=== PATIENT | female | born 1980 | race Caucasian/White ===

== ENCOUNTER 2022-09-14 19:37 | Inpatient (IN) ==
[2022-09-14] MEDS ORDERED: SODIUM CHLORIDE 0.9% 1000ML 500 ML IV ONE (20:10)
[2022-09-14] MEDS ORDERED: cefTRIAXone SODIUM 1,000 MG in DEXTROSE 5% AD-VAN 50 ML IV STA (20:10)
[2022-09-14 20:13] LABS: Hemoglobin 14.1 g/dl (12.0-16.0); Mean Corpuscular Hemoglobin 34.6 pg (25.0-34.0); Mean Corpuscular Hgb Conc 34.4 g/dL (32.0-36.0); Mean Corpuscular Volume 100.5 fL (80.0-100.0); Mean Platelet Volume 9.1 fL (9.4-12.4); Platelet Count 428 K/uL (130-400); RDW Coefficient of Variation 13.1 % (11.5-14.5); RDW Standard Deviation 48.3 fL (36.4-46.3); Red Blood Count 4.08 M/uL (4.20-5.40); White Blood Count 14.92 K/ul (4.8-10.8)
--- NOTE | 2022-09-14 20:17 | Emergency Department Note ---
Impression & Plan Cellulitis of face ED Provider Note Provider: Thien Batres MD DATE OF SERVICE: 09/14/2022 CHIEF COMPLAINT: Facial rash HISTORY OF PRESENT ILLNESS: Patient is a 42-year-old female history of h ypothyroidism and Down syndrome presenting here with parents today referred from [facility]. Patient evidently was doing fairly well yesterday and then awoke this morning with some redness face prickly to the right of the nostril. States yesterday she did evacuate some mucus from the right nose. Denies any trauma. States it was bit painful earlier. Denies fever but reports a bit of fatigue. States a bit of dizziness after having the IV placed but has been having good intake today and ate earlier. Has some allergy issues and takes Alexandrea but never had a facial rash like this before. No other rashes reported elsewhere on the body. Referred from urgent care for evaluation of possible facial cellulitis. Denies any difficulty swallowing or oral mucosal lesions. PAST MEDICAL HISTORY: As noted above MEDICATIONS: Reviewed home medications SOCIAL HISTORY: Lives with parents PHYSICAL EXAM: GENERAL: alert and oriented in no acute distress on stretcher Head: normocephalic and atraumatic with rash around the eyes and nasal bridge to the cheeks without bullae or blistering. No large open wounds noted. EYES: No injection, discharge or icterus. PERRL, EOMI. NECK: Trachea midline. Supple with some mild lymphadenopathy in the submandibular space but no tongue elevation. ENT: Mucous membranes pink and moist. No ulcerations noted. Pharynx without erythema or exudate. LUNGS: Airway patent. No retractions or tachypnea HEART: Regular rate and rhythm. No chest wall tenderness ABDOMEN: Soft and non-tender, without guarding or rebound. SKIN: Acyanotic, warm, dry, without rashes EXTREMITIES: Without swelling, tenderness or deformity NEUROLOGICAL: No focal deficits. No aphasia. No facial droop or slurred speech. . Ambulatory. Patient's laboratory studies reviewed. Differential includes Cellulitis, abscess, MRSA infection, DVT, necrotizing fasciitis, dermatitis, drug eruption, allergic reaction, as well as other pathologies. IMPRESSION/MEDICAL DECISION MAKING: Patient with red rash to the face developing over the course of the day. 98.7 Fahrenheit for me in the room and no use of antipyretics. Does have a leukocytosis on blood work here. Do not see a large open wound but does have some nasal secretions noted. Unsure if this may have provoked his skin inf ection here. Could be viral in nature as well and COVID flu RSV test sent. Denies other significant respiratory symptoms. No evidence of SJS or mucosal involvement. Declined significant pain now. Carefully give a dose of ceftriaxone for antibiotic coverage. Do not see any evidence of acute jesús rological compromise or extraocular motion abnormality. Doubt an orbital cellulitis. No significant electrolyte abnormalities noted. Negative COVID flu testing. On reassessment the patient has some expanding erythema now below the right lower jawline. Doubt abscess given the quick spread but concerned given the cellulitis. Received ceftriaxone. Ordered a dose of vancomycin for MRSA coverage given the expansion. Discussed with patient as well as parents at bedside given the expansion even during the time I seen her with leukocytosis and concerns for cellulitis would recommend observation and IV antibiotics at this time. They were in agreement. Hospitalist contacted. DIAGNOSIS: Facial cellulitis DISPOSITION: Hospitalist will evaluate Patient was agreeable with this plan. Past Med/Surg History Social History Smoking Status: Never smoker Preferred Language: Guyanese Feels Safe at Home: Yes Allergies Allergies Allergy/AdvReac Type Severity Reaction Status Date / Time latex Allergy Intermediate Rash Verified 09/14/22 21:20 Penicillins Allergy Intermediate Rash Verified 09/14/22 21:20 Home Meds Home Medications Medication Instructions Recorded Confirmed cholecalciferol (vitamin D3) 25 25 mcg PO DAILY 09/14/22 09/14/22 mcg (1,000 unit) capsule (Vitamin D3) fexofenadine 180 mg tablet 180 mg PO DAILY 09/14/22 09/14/22 levonorgestrel 0.15 mg-ethinyl 1 tab PO QAM 09/14/22 09/14/22 estradiol 0.03 mg tablet (Altavera (28)) levothyroxine 112 mcg tablet 112 mcg PO DAILYBB 09/14/22 09/14/22 omega 2-wym-rsk-fish oil 1,000 mg 1 cap PO DAILY 09/14/22 09/14/22 (120 mg-180 mg) capsule (Fish Oil) Results & Data (ED) Vital Signs Vital Signs - 24 hr 09/14/22 19:38 09/14/22 20:32 09/14/22 22:16 Temperature 37.7 C H Temperature Source Temporal Artery Scan Pulse Rate 113 H Pulse Rate [Finger] 85 81 Pulse Rhythm Regular Pulse Strength Normal Respiratory Rate 18 16 18 Respiratory Effort / Characteristics Non-Labored Spontaneous Respiratory Depth Normal Normal Normal Respiratory Pattern Regular Blood Pressure 118/71 Blood Pressure [Right Arm] 127/66 128/63 Blood Pressure Mean 86 Blood Pressure Mean [Right Arm] 86 84 Blood Pressure Position Sitting Pulse Oximetry 100 100 96 Oxygen Delivery Method Room Air Room Air Room Air Sepsis Recent Fever Within 48 Hours No Sepsis New/Unexplained Change in Mental Status N/A Sepsis Action Taken by Nursing No Action Required Laboratory Data 09/14/22 19:50 09/14/22 19:50 Lab Results 09/14/22 09/14/22 09/14/22 Range/Units 19:50 19:50 20:33 WBC 14.92 H (4.8-10.8) K/ul RBC 4.08 L (4.20-5.40) M/uL Hgb 14.1 (12.0-16.0) g/dl Hct 41.0 (37.0-47.0) % MCV 100.5 H (80.0-100.0) fL MCH 34.6 H (25.0-34.0) pg MCHC 34.4 (32.0-36.0) g/dL RDW Std Deviation 48.3 H (36.4-46.3) fL RDW Coeff of Vishnu 13.1 (11.5-14.5) % Plt Count 428 H (130-400) K/uL MPV 9.1 L (9.4-12.4) fL Immature Gran % (Auto) 0.5 % Neut % (Auto) 92.7 % Lymph % (Auto) 2.5 % [place] % (Auto) 3.8 % Eos % (Auto) 0.1 % Baso % (Auto) 0.4 % Neut # (Auto) 13.83 H (1.40-6.50) K/uL Lymph # (Auto) 0.38 L (1.2-3.4) K/uL [place] # (Auto) 0.57 (0.11-0.59) K/uL Eos # (Auto) 0.01 (0-0.50) K/uL Baso # (Auto) 0.06 (0-0.2) K/uL Immature Gran # (Auto) 0.07 (0.01-0.20) K/uL Sodium 135 L (136-145) mmol/L Potassium 4.4 (3.5-5.1) mmol/L Chloride 100 (98-107) mmol/L Carbon Dioxide 27 (21-32) mmol/L Anion Gap 8 (3-11) BUN 11 (6-23) mg/dl Creatinine 1.05 (0.6-1.2) mg/dl Est Cr Clr Drug Dosing Not Reportable Est GFR ( Amer) 76.4 ml/min Est GFR (Non-Af Amer) 65.9 ml/min BUN/Creatinine Ratio 10.5 (10-20) Glucose 168 H (70-99(Fasting)) mg/dl Lactate (0.4-2.0) mmol/L Calcium 9.1 (8.6-10.3) mg/dl Magnesium 1.9 (1.7-2.4) mg/dl Total Bilirubin 0.4 (0.2-1.0) mg/dl AST 24 (13-39) U/L ALT 30 (7-52) U/L Alkaline Phosphatase 102 (34-104) U/L Total Protein 8.9 H (6.0-8.3) gm/dl Albumin 4.0 (3.4-5.0) gm/dl Globulin 4.9 H (2.5-4.0) gm/dl Albumin/Globulin Ratio 0.8 L (0.9-2) SARS-CoV-2 (PCR) NEGATIVE (Negative) Influenza Type A (PCR) Negative (Neg) Influenza Type B (PCR) Negative (Neg) RSV (RT-PCR) Negative (Neg) 09/14/22 Range/Units 23:06 WBC (4.8-10.8) K/ul RBC (4.20-5.40) M/uL Hgb (12.0-16.0) g/dl Hct (37.0-47.0) % MCV (80.0-100.0) fL MCH (25.0-34.0) pg MCHC (32.0-36.0) g/dL RDW Std Deviation (36.4-46.3) fL RDW Coeff of Vishnu (11.5-14.5) % Plt Count (130-400) K/uL MPV (9.4-12.4) fL Immature Gran % (Auto) % Neut % (Auto) % Lymph % (Auto) % [place] % (Auto) % Eos % (Auto) % Baso % (Auto) % Neut # (Auto) (1.40-6.50) K/uL Lymph # (Auto) (1.2-3.4) K/uL [place] # (Auto) (0.11-0.59) K/uL Eos # (Auto) (0-0.50) K/uL Baso # (Auto) (0-0.2) K/uL Immature Gran # (Auto) (0.01-0.20) K/uL Sodium (136-145) mmol/L Potassium (3.5-5.1) mmol/L Chloride (98-107) mmol/L Carbon Dioxide (21-32) mmol/L Anion Gap (3-11) BUN (6-23) mg/dl Creatinine (0.6-1.2) mg/dl Est Cr Clr Drug Dosing Est GFR ( Amer) ml/min Est GFR (Non-Af Amer) ml/min BUN/Creatinine Ratio (10-20) Glucose (70-99(Fasting)) mg/dl Lactate 1.3 (0.4-2.0) mmol/L Calcium (8.6-10.3) mg/dl Magnesium (1.7-2.4) mg/dl Total Bilirubin (0.2-1.0) mg/dl AST (13-39) U/L ALT (7-52) U/L Alkaline Phosphatase (34-104) U/L Total Protein (6.0-8.3) gm/dl Albumin (3.4-5.0) gm/dl Globulin (2.5-4.0) gm/dl Albumin/Globulin Ratio (0.9-2) SARS-CoV-2 (PCR) (Negative) Influenza Type A (PCR) (Neg) Influenza Type B (PCR) (Neg) RSV (RT-PCR) (Neg) Administered Medications Vancomycin HCl 1,000 mg/ (Sodium Chloride) 520 mls @ 200 mls/hr IV NOW ONE Stop: 09/15/22 00:36 Last Admin: 09/14/22 22:16 Dose: 200 mls/hr Documented By: SES Discontinued Medications Sodium Chloride (Nss 1000ml) 500 mls @ 999 mls/hr IV .Q31M ONE Stop: 09/14/22 20:40 Last Infusion: 09/14/22 21:02 Dose: 0 mls/hr Documented By: Admin: 09/14/22 20:31 Dose: 999 mls/hr Documented By: TAMIA Ceftriaxone Sodium 1,000 mg/ (Dextrose) 50 mls @ 100 mls/hr IV NOW STA Stop: 09/14/22 20:39 Last Infusion: 09/14/22 21:28 Dose: 0 mls/hr Documented By: Admin: 09/14/22 20:58 Dose: 100 mls/hr Documented By: TAMIA Cefepime HCl (Maxipime) 2,000 mg in 20 mls @ 5 mls/min IV NOW STA; Protocol Stop: 09/14/22 22:46 Last Admin: 09/14/22 23:06 Dose: 5 mls/min Documented By: LOVE Ketorolac Tromethamine (Ketorolac Tromethamine 15 Mg/Ml Vial) 15 mg IV NOW ONE Stop: 09/14/22 22:23 Last Admin: 09/14/22 22:44 Dose: 15 mg Documented By: TAMIA Discharge Plan Visit Data Chief Complaint: Rash Stated Complaint: RASH ON FACE ED Provider: Thien Batres Discharge Problem: Cellulitis of face Patient Disposition: Being Evaluated by Hospitalist Forms Stand Alone Forms: [facility] Prescriptions Prescriptions: No Action levonorgestrel-ethinyl estrad [Altavera (28)] 0.15-0.03 mg tablet 1 tab PO QAM fexofenadine [Alexandrea] 180 mg Tablet 180 mg PO DAILY levothyroxine 112 mcg tablet 112 mcg PO DAILYBB cholecalciferol (vitamin D3) [Vitamin D3] 25 mcg (1,000 unit) Capsule 25 mcg PO DAILY omega 5-pmm-jzq-fish oil [Fish Oil] 1,000 mg (120 mg-180 mg) Capsule 1 cap PO DAILY Referrals Referrals: Tamy Hassan [Non-Staff] -
[2022-09-14 20:27] LABS: Alanine Aminotransferase 30 U/L (7-52); Albumin Globulin Ratio 0.8 (0.9-2); Alkaline Phosphatase 102 U/L (34-104); Anion Gap 8 (3-11); Aspartate Aminotransferase 24 U/L (13-39); BUN Creatinine Ratio 10.5 (10-20); Bilirubin,Total 0.4 mg/dl (0.2-1.0); Blood Urea Nitrogen 11 mg/dl (6-23); Calcium 9.1 mg/dl (8.6-10.3); Carbon Dioxide 27 mmol/L (21-32); Chloride 100 mmol/L (98-107); Est GFR (African American) 76.4 ml/min; Est GFR (Non-African American) 65.9 ml/min; Globulin 4.9 gm/dl (2.5-4.0); Glucose 168 mg/dl (70-99(Fasting)); Potassium 4.4 mmol/L (3.5-5.1); Sodium 135 mmol/L (136-145); Total Protein 8.9 gm/dl (6.0-8.3)
[2022-09-14 20:29] LABS: Basophils # (auto) 0.06 K/uL (0-0.2); Basophils % (auto) 0.4 %; Eosinophils # (auto) 0.01 K/uL (0-0.50); Eosinophils % (auto) 0.1 %; Immature Granulocytes # (auto) 0.07 K/uL (0.01-0.20); Immature Granulocytes % (auto) 0.5 %; Lymphocytes # (auto) 0.38 K/uL (1.2-3.4); Lymphocytes % (auto) 2.5 %; Monocytes # (auto) 0.57 K/uL (0.11-0.59); Monocytes % (auto) 3.8 %; Neutrophils # (auto) 13.83 K/uL (1.40-6.50); Neutrophils % (auto) 92.7 %
[2022-09-14 21:17] LABS: Influenza A virus by PCR Negative (Neg); Influenza B virus by PCR Negative (Neg); RSV by PCR Negative (Neg); SARS CoV2 RNA(COVID-19) Ceph NEGATIVE (Negative)
[2022-09-14] MEDS ORDERED: VANCOMYCIN CONSULT ACTIVE PRN (22:01)
[2022-09-14] MEDS ORDERED: VANCOMYCIN HCL 1,000 MG in SODIUM CHLORIDE 0.9% 500 ML IV ONE (22:01)
[2022-09-14] MEDS ORDERED: ACETAMINOPHEN 1,000 MG/100 ML VIAL IV STA (22:21)
[2022-09-14] MEDS ORDERED: KETOROLAC TROMETHAMINE 15 MG/ML VIAL IV ONE (22:22)
[2022-09-14] MEDS ORDERED: CEFEPIME 2,000 MG/20 ML VIAL IV STA (22:43)
[2022-09-14 23:14] LABS: Magnesium 1.9 mg/dl (1.7-2.4)
--- NOTE | 2022-09-14 23:30 | History & Physical Report ---
Date of Service September 14, 2022 Assessment & Plan (1) Sepsis: Plan: Secondary to right facial cellulitis Reactive submandibular adenopathy hypothyroidism, euthyroid as of TSH last year prediabetes, hemoglobin A1c of 5.1 from 2020 hx Down syndrome Medical telemetry CS, Doxycycline Consider steroid dose if with progression Update hemoglobin A1c DVT prophylaxis. Lovenox subcu Full code Patient family requesting updates from providers. Mr. Yazan Eid (father), contact #[phone] Ms. Claudia Spence (mother), contact #[phone]. Text document was generated using [employer] voice recognition software. It may contain grammatical or spelling errors. Kindly contact undersigned for clarification of any documentation item in question. History of Present Illness Chief Complaint: Right facial swelling Primary Care Provider: Eloina Boss, History obtained from patient, family, and records. Medical history significant for hypothyroidism, prediabetes, Down syndrome. Patient woke up this morning with some redness on her right face. Possible picking on the right nostril. No headache, no tooth ache, no fever, no chills. No chest pain, no SOB, no voice change or trouble swallowing. No prior episodes. Patient brought by family to ER. IV ceftriaxone administered at the ER. 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 Allergies Allergy/AdvReac Type Severity Reaction Status Date / Time latex Allergy Intermediate Rash Verified 09/14/22 21:20 Penicillins Allergy Intermediate Rash Verified 09/14/22 21:20 Home Medications Medication Instructions Recorded Confirmed Type cholecalciferol (vitamin D3) 25 25 mcg PO DAILY 09/14/22 09/14/22 History mcg (1,000 unit) capsule (Vitamin D3) fexofenadine 180 mg tablet 180 mg PO DAILY 09/14/22 09/14/22 History levonorgestrel 0.15 mg-ethinyl 1 tab PO QAM 09/14/22 09/14/22 History estradiol 0.03 mg tablet (Altavera (28)) levothyroxine 112 mcg tablet 112 mcg PO DAILYBB 09/14/22 09/14/22 History omega 7-ile-ffk-fish oil 1,000 mg 1 cap PO DAILY 09/14/22 09/14/22 History (120 mg-180 mg) capsule (Fish Oil) Past Med/Surg History Social History Smoking Status: Never smoker Hx Alcohol Use: No Hx Substance Use: No Preferred Language: [place] Citizen [employer] Sales[employer] Required: No Beliefs That Will Affect Care: None Current Living Situation: Parent Feels Safe at Home: Yes Assistive Devices: Glasses Review of Systems Review of Systems: As per HPI, all other systems reviewed and negative Physical Exam Physical Exam: GENERAL: Comfortable, pleasant, no respiratory distress SKIN: Normal color, warm HEENT: [place] palpebral conjunctivae, no ptosis, right nasomaxillary erythematous swelling without fluctuance, dry buccal mucosa NECK : Supple, no tenderness CHEST : CTA, no tenderness HEART : RRR, no obvious murmurs ABDOMEN: Some distention, nontender EXTREMITIES : No LE swelling/tenderness, no other conspicuous deformities noted NEUROLOGIC : Coherent, no facial asymmetry, no other gross focality Results & Data Results & Data Vital Signs (Past 12 Hours) Vital Signs Temp Pulse Pulse Resp BP BP Pulse Ox 09/14/22 22:16 81 18 128/63 96 09/14/22 20:32 85 16 127/66 100 09/14/22 19:38 37.7 C H 113 H 18 118/71 100 O2 Del Method 09/14/22 22:16 Room Air 09/14/22 20:32 Room Air 09/14/22 19:38 Room Air Laboratory Results Laboratory Results WBC 14.92 K/ul (4.8-10.8) H 09/14/22 19:50 RBC 4.08 M/uL (4.20-5.40) L 09/14/22 19:50 Hgb 14.1 g/dl (12.0-16.0) 09/14/22 19:50 Hct 41.0 % (37.0-47.0) 09/14/22 19:50 MCV 100.5 fL (80.0-100.0) H 09/14/22 19:50 MCH 34.6 pg (25.0-34.0) H 09/14/22 19:50 MCHC 34.4 g/dL (32.0-36.0) 09/14/22 19:50 RDW Std Deviation 48.3 fL (36.4-46.3) H 09/14/22 19:50 RDW Coeff of Vishnu 13.1 % (11.5-14.5) 09/14/22 19:50 Plt Count 428 K/uL (130-400) H 09/14/22 19:50 MPV 9.1 fL (9.4-12.4) L 09/14/22 19:50 Immature Gran % (Auto) 0.5 % 09/14/22 19:50 Neut % (Auto) 92.7 % 09/14/22 19:50 Lymph % (Auto) 2.5 % 09/14/22 19:50 [place] % (Auto) 3.8 % 09/14/22 19:50 Eos % (Auto) 0.1 % 09/14/22 19:50 Baso % (Auto) 0.4 % 09/14/22 19:50 Neut # (Auto) 13.83 K/uL (1.40-6.50) H 09/14/22 19:50 Lymph # (Auto) 0.38 K/uL (1.2-3.4) L 09/14/22 19:50 [place] # (Auto) 0.57 K/uL (0.11-0.59) 09/14/22 19:50 Eos # (Auto) 0.01 K/uL (0-0.50) 09/14/22 19:50 Baso # (Auto) 0.06 K/uL (0-0.2) 09/14/22 19:50 Immature Gran # (Auto) 0.07 K/uL (0.01-0.20) 09/14/22 19:50 Sodium 135 mmol/L (136-145) L 09/14/22 19:50 Potassium 4.4 mmol/L (3.5-5.1) 09/14/22 19:50 Chloride 100 mmol/L (98-107) 09/14/22 19:50 Carbon Dioxide 27 mmol/L (21-32) 09/14/22 19:50 Anion Gap 8 (3-11) 09/14/22 19:50 BUN 11 mg/dl (6-23) 09/14/22 19:50 Creatinine 1.05 mg/dl (0.6-1.2) 09/14/22 19:50 Est Cr Clr Drug Dosing Not Reportable 09/14/22 19:50 Est GFR ( Amer) 76.4 ml/min 09/14/22 19:50 Est GFR (Non-Af Amer) 65.9 ml/min 09/14/22 19:50 BUN/Creatinine Ratio 10.5 (10-20) 09/14/22 19:50 Glucose 168 mg/dl (70-99(Fasting)) H 09/14/22 19:50 Lactate 1.3 mmol/L (0.4-2.0) 09/14/22 23:06 Calcium 9.1 mg/dl (8.6-10.3) 09/14/22 19:50 Magnesium 1.9 mg/dl (1.7-2.4) 09/14/22 19:50 Total Bilirubin 0.4 mg/dl (0.2-1.0) 09/14/22 19:50 AST 24 U/L (13-39) 09/14/22 19:50 ALT 30 U/L (7-52) 09/14/22 19:50 Alkaline Phosphatase 102 U/L (34-104) 09/14/22 19:50 Total Protein 8.9 gm/dl (6.0-8.3) H 09/14/22 19:50 Albumin 4.0 gm/dl (3.4-5.0) 09/14/22 19:50 Globulin 4.9 gm/dl (2.5-4.0) H 09/14/22 19:50 Albumin/Globulin Ratio 0.8 (0.9-2) L 09/14/22 19:50 SARS-CoV-2 (PCR) NEGATIVE (Negative) 09/14/22 20:33 Influenza Type A (PCR) Negative (Neg) 09/14/22 20:33 Influenza Type B (PCR) Negative (Neg) 09/14/22 20:33 RSV (RT-PCR) Negative (Neg) 09/14/22 20:[address]: FINDINGS: Bones/joints: No acute fracture. Soft tissues: Mild right lower facial soft tissue swelling. Lymph nodes: Multiple small and mildly enlarged adjacent nodes with surrounding fat stranding. Orbits: Unremarkable. Submandibular/parotid glands: Mildly enhancing right submandibular gland and surrounding fat stranding. No salivary ductal dilation or calculus visualized. Sinuses: Unremarkable. No air-fluid levels. IMPRESSION: Mild right lower facial soft tissue swelling.Mildly enhancing right submandibular gland and surrounding fat stranding. Likely represents sialadenitis.
[2022-09-15] MEDS ORDERED: OPTIRAY 320 500ml IV ONE (00:29)
--- NOTE | 2022-09-15 01:00 | CT Scan Report ---
Exam(s): CT FACIAL With Contrast IV Amt: 100 ML OPTIRAY 320 EXAM: CT Maxillofacial With Intravenous Contrast CLINICAL HISTORY: Reason for exam: swelling. PAIN AND SWELLING AT RIGHT SIDE OF FACE TECHNIQUE: Axial computed tomography images of the face with intravenous contrast. Automated exposure control was utilized for the study. A dose lowering technique was utilized adhering to the principles of ALARA. CONTRAST: Patient received 100 ML OPTIRAY 320 of IV contrast COMPARISON: No relevant prior studies available. FINDINGS: Bones/joints: No acute fracture. Soft tissues: Mild right lower facial soft tissue swelling. Lymph nodes: Multiple small and mildly enlarged adjacent nodes with surrounding fat stranding. Orbits: Unremarkable. Submandibular/parotid glands: Mildly enhancing right submandibular gland and surrounding fat stranding. No salivary ductal dilation or calculus visualized. Sinuses: Unremarkable. No air-fluid levels. IMPRESSION: Mildly enhancing right submandibular gland and surrounding fat stranding. Likely represents sialadenitis. Electronically signed by: Peace Chavarria M.D. 09/15/22 00:59 AM
[2022-09-15] MEDS ORDERED: IBUPROFEN 200 MG TAB PO PRN (01:11)
[2022-09-15] MEDS ORDERED: PROMETHAZINE HCL 6.25 MG in SODIUM CHLORIDE 0.9% 50 ML IV PRN (01:11)
[2022-09-15] MEDS ORDERED: KETOROLAC TROMETHAMINE 15 MG/ML VIAL IV PRN (01:11)
[2022-09-15] MEDS ORDERED: SODIUM CHLORIDE 0.9% 1000ML 1,000 ML IV ONE (01:24)
[2022-09-15] MEDS: ACETAMINOPHEN 325 MG TAB PO PRN (01:59)
[2022-09-15] MEDS ORDERED: DEXAMETHASONE SOD INJ 4 MG/ML VIAL IV STA (05:33)
[2022-09-15] MEDS ORDERED: dexAMETHasone 4 MG in SYRINGE 0 ML IV STA (05:35)
[2022-09-15] MEDS ORDERED: DOXYCYCLINE HYCLATE 100 MG in DEXTROSE 5% 100 ML IV STA (05:38)
[2022-09-15] MEDS: LEVOTHYROXINE SODIUM 112 MCG TABLET PO SCH (05:46)
[2022-09-15 07:19] LABS: Basophils # (auto) 0.06 K/uL (0-0.2); Basophils % (auto) 0.7 %; Hematocrit (blood only) 33.5 % (37.0-47.0); Hemoglobin 11.4 g/dl (12.0-16.0); Immature Granulocytes # (auto) 0.04 K/uL (0.01-0.20); Immature Granulocytes % (auto) 0.5 %; Lymphocytes # (auto) 0.59 K/uL (1.2-3.4); Lymphocytes % (auto) 6.7 %; Mean Corpuscular Hemoglobin 34.7 pg (25.0-34.0); Mean Corpuscular Volume 101.8 fL (80.0-100.0); Mean Platelet Volume 9.3 fL (9.4-12.4); Monocytes # (auto) 0.38 K/uL (0.11-0.59); Monocytes % (auto) 4.3 %; Neutrophils % (auto) 87.8 %; Platelet Count 311 K/uL (130-400); RDW Coefficient of Variation 13.4 % (11.5-14.5); RDW Standard Deviation 50.1 fL (36.4-46.3); Red Blood Count 3.29 M/uL (4.20-5.40); White Blood Count 8.77 K/ul (4.8-10.8)
[2022-09-15 07:36] LABS: BUN Creatinine Ratio 12.8 (10-20); Calcium 8.3 mg/dl (8.6-10.3); Creatinine Clr Calc Pharmacy 55.8 ml/min; Est GFR (African American) 87.3 ml/min; Est GFR (Non-African American) 75.4 ml/min
[2022-09-15 08:12] LABS: Estimated Average Glucose 111 mg/dl; Hemoglobin A1C 5.5 % (4.5-5.6)
[2022-09-15] MEDS ORDERED: SULFAMETHOXAZOLE/TRIMETHOPRIM DS 800/160MG TAB PO SCH (09:00)
[2022-09-15] MEDS ORDERED: DOXYCYCLINE HYCLATE 100 MG CAP PO SCH ×2 (09:00→21:00)
[2022-09-15] MEDS: ENOXAPARIN INJ 40 MG/0.4 ML SYR SQ SCH (09:05)
[2022-09-15] MEDS: FEXOFENADINE HCL 180 MG TAB PO SCH (09:05)
[2022-09-15] MEDS ORDERED: VANCOMYCIN CONSULT ACTIVE PRN (09:51)
[2022-09-15] MEDS: VANCOMYCIN HCL 750 MG in SODIUM CHLORIDE 0.9% 250 ML IV SCH ×2 (10:34→23:22)
[2022-09-15] MEDS ORDERED: OMEGA-3 (PURIFIED FISH OIL) 1 GM CAP PO SCH (11:15)
[2022-09-15] MEDS: CHOLECALCIFEROL 1,000 UNITS 25 MCG TAB PO SCH (11:42)
--- NOTE | 2022-09-15 13:04 | Hospitalist Progress Note ---
Date of Service September 15, 2022 Assessment & Plan (1) Sepsis: (2) Cellulitis of face: Plan: patient is a 42-year-old female with history of Down syndrome and hypothyroidism. She presented with left facial redness, swelling and tenderness. Low-grade fever noted in ED. Labs reviewed; leukocytosis improved from 14.9-8.7. Face CT reviewed; mildly enhancing right submandibular gland and surrounding fatty stranding. Likely represents sialadenitis. On vancomycin. Continue for now.Obtain MRSA nares Resume regular diet Monitor for signs of worsening which includes increased pain, swelling and fever. Follow-up on blood culture. Chronic conditions: HypothyroidismTSH within normal limits. Continue levothyroxine [id number] of 5.5. Please note the above document was generated using voice recognition software. It may contain grammatical, syntax or spelling errors. Any formal questions or concerns about the content, text or information contained within the body of this dictation should be directly addressed to the provider for clarification Admission and Anticipated Discharge Date Admission Date: September 14, 2022 Subjective Patient seen and examined at bedside. She is sitting up on the bed; comfortable. Her parents are at bedside. They noted that her swelling has slightly increased; reports that the redness has decreased compared to admission. Review of Systems Review of Systems: All systems reviewed & are unremarkable except as noted in Subjective Physical Exam Physical Exam: Constitutional: WD/WN, vitals as above, NAD, sitting up in bed, pleasant, conversing easily Head: Redness, swelling present on right cheek. No induration on palpation. Minimal tenderness. Respiratory: normal respiratory effort, lungs clear to auscultation, no wheeze, rales, rhonchi. Normal insp/exp effort, no accessory muscle use Cardiovascular: RRR, no murmur, no edema Vessels: no JVD or carotid bruit Chest: normal inspection of chest Abdomen: normal bowel sounds, soft, nontender, no hepatosplenomegaly Musculoskeletal: no cyanosis or clubbing, extremities motor strength 5/5 Skin: no rashes, warm and dry normal turgor Neurologic: PERRL, EOMI, accommodation nl, no face palsy, no dysarthria CN's II- XI intact bilaterally and moves all extremities Psychiatric: A+Ox3, euthymic affect Results & Data Results & Data Vital Signs (Past 12 Hours) Vital Signs Temp Pulse Pulse Resp BP Pulse Ox O2 Del Method 09/15/22 11:24 36.3 C L 67 14 101/59 L 100 Room Air 09/15/22 07:32 36.5 C 56 L 14 92/53 L 100 Room Air 09/15/22 07:14 49 L 09/15/22 04:07 36.8 C 69 18 94/58 L 97 Room Air 09/15/22 01:24 70 09/15/22 01:00 37.8 C H 76 20 112/52 L 99 Room Air Laboratory Results Laboratory Results WBC 8.77 K/ul (4.8-10.8) 09/15/22 06:14 RBC 3.29 M/uL (4.20-5.40) L 09/15/22 06:14 Hgb 11.4 g/dl (12.0-16.0) L 09/15/22 06:14 Hct 33.5 % (37.0-47.0) L 09/15/22 06:14 MCV 101.8 fL (80.0-100.0) H 09/15/22 06:14 MCH 34.7 pg (25.0-34.0) H 09/15/22 06:14 MCHC 34.0 g/dL (32.0-36.0) 09/15/22 06:14 RDW Std Deviation 50.1 fL (36.4-46.3) H 09/15/22 06:14 RDW Coeff of Vishnu 13.4 % (11.5-14.5) 09/15/22 06:14 Plt Count 311 K/uL (130-400) 09/15/22 06:14 MPV 9.3 fL (9.4-12.4) L 09/15/22 06:14 Immature Gran % (Auto) 0.5 % 09/15/22 06:14 Neut % (Auto) 87.8 % 09/15/22 06:14 Lymph % (Auto) 6.7 % 09/15/22 06:14 [place] % (Auto) 4.3 % 09/15/22 06:14 Eos % (Auto) 0.0 % 09/15/22 06:14 Baso % (Auto) 0.7 % 09/15/22 06:14 Neut # (Auto) 7.70 K/uL (1.40-6.50) H 09/15/22 06:14 Lymph # (Auto) 0.59 K/uL (1.2-3.4) L 09/15/22 06:14 [place] # (Auto) 0.38 K/uL (0.11-0.59) 09/15/22 06:14 Eos # (Auto) 0.00 K/uL (0-0.50) 09/15/22 06:14 Baso # (Auto) 0.06 K/uL (0-0.2) 09/15/22 06:14 Immature Gran # (Auto) 0.04 K/uL (0.01-0.20) 09/15/22 06:14 Sodium 137 mmol/L (136-145) 09/15/22 06:14 Potassium 4.0 mmol/L (3.5-5.1) 09/15/22 06:14 Chloride 106 mmol/L (98-107) 09/15/22 06:14 Carbon Dioxide 26 mmol/L (21-32) 09/15/22 06:14 Anion Gap 5 (3-11) 09/15/22 06:14 BUN 12 mg/dl (6-23) 09/15/22 06:14 Creatinine 0.94 mg/dl (0.6-1.2) 09/15/22 06:14 Est Cr Clr Drug Dosing 55.8 ml/min 09/15/22 06:14 Est GFR ( Amer) 87.3 ml/min 09/15/22 06:14 Est GFR (Non-Af Amer) 75.4 ml/min 09/15/22 06:14 BUN/Creatinine Ratio 12.8 (10-20) 09/15/22 06:14 Glucose 101 mg/dl (70-99(Fasting)) H 09/15/22 06:14 Estimat Average Glucose 111 mg/dl 09/14/22 19:50 Hemoglobin A1c 5.5 % (4.5-5.6) 09/14/22 19:50 Lactate 1.3 mmol/L (0.4-2.0) 09/14/22 23:06 Calcium 8.3 mg/dl (8.6-10.3) L 09/15/22 06:14 Magnesium 1.9 mg/dl (1.7-2.4) 09/14/22 19:50 Total Bilirubin 0.4 mg/dl (0.2-1.0) 09/14/22 19:50 AST 24 U/L (13-39) 09/14/22 19:50 ALT 30 U/L (7-52) 09/14/22 19:50 Alkaline Phosphatase 102 U/L (34-104) 09/14/22 19:50 Total Protein 8.9 gm/dl (6.0-8.3) H 09/14/22 19:50 Albumin 4.0 gm/dl (3.4-5.0) 09/14/22 19:50 Globulin 4.9 gm/dl (2.5-4.0) H 09/14/22 19:50 Albumin/Globulin Ratio 0.8 (0.9-2) L 09/14/22 19:50 SARS-CoV-2 (PCR) NEGATIVE (Negative) 09/14/22 20:33 Influenza Type A (PCR) Negative (Neg) 09/14/22 20:33 Influenza Type B (PCR) Negative (Neg) 09/14/22 20:33 RSV (RT-PCR) Negative (Neg) 09/14/22 20:[address] 09/14/22 23:30 Exam(s): CT FACIAL With Contrast IV Amt: 100 ML OPTIRAY 320 EXAM: CT Maxillofacial With Intravenous Contrast CLINICAL HISTORY: Reason for exam: swelling. PAIN AND SWELLING AT RIGHT SIDE OF FACE TECHNIQUE: Axial computed tomography images of the face with intravenous contrast. Automated exposure control was utilized for the study. A dose lowering technique was utilized adhering to the principles of ALARA. CONTRAST: Patient received 100 ML OPTIRAY 320 of IV contrast COMPARISON: No relevant prior studies available. FINDINGS: Bones/joints: No acute fracture. Soft tissues: Mild right lower facial soft tissue swelling. Lymph nodes: Multiple small and mildly enlarged adjacent nodes with surrounding fat stranding. Orbits: Unremarkable. Submandibular/parotid glands: Mildly enhancing right submandibular gland and surrounding fat stranding. No salivary ductal dilation or calculus visualized. Sinuses: Unremarkable. No air-fluid levels. IMPRESSION: Mildly enhancing right submandibular gland and surrounding fat stranding. Likely represents sialadenitis. Electronically signed by: Peace Chavarria M.D. 09/15/22 00:59 AM
--- NOTE | 2022-09-15 14:52 | Pharmacy Report ---
Pharmacy Vanc AUC Short Note - Date of Service September 15, 2022 - Assessment & Plan Assessment 42 year old F receiving vancomycin for treatment of cellulitis. Pertinent microbiologic data includes: cultures pending Day # 1 of antimicrobial therapy. Plan Vancomycin * AUC/TIFFANI is the preferred PK/PD target for vancomycin * AUC guided dosing is effective and associated with decreased risk of nephrotoxicity compared to traditional trough targets * vancomycin 750 mg IV 12 is predicted to achieve target AUC/TIFFANI of 400-600 mg/L.hr and may be associated with a 13 % risk of nephrotoxicity * Trough to be determined if continued > 48 hours Pharmacy will continue to follow and will adjust dose/frequency as necessary. Thank you.
[2022-09-16] MEDS: LEVOTHYROXINE SODIUM 112 MCG TABLET PO SCH (05:51)
[2022-09-16 07:20] LABS: Basophils # (auto) 0.05 K/uL (0-0.2); Basophils % (auto) 0.7 %; Eosinophils # (auto) 0.01 K/uL (0-0.50); Eosinophils % (auto) 0.1 %; Hematocrit (blood only) 35.3 % (37.0-47.0); Hemoglobin 12.1 g/dl (12.0-16.0); Immature Granulocytes # (auto) 0.04 K/uL (0.01-0.20); Immature Granulocytes % (auto) 0.6 %; Lymphocytes # (auto) 0.89 K/uL (1.2-3.4); Lymphocytes % (auto) 12.8 %; Mean Corpuscular Hemoglobin 34.7 pg (25.0-34.0); Mean Corpuscular Hgb Conc 34.3 g/dL (32.0-36.0); Mean Corpuscular Volume 101.1 fL (80.0-100.0); Mean Platelet Volume 9.3 fL (9.4-12.4); Monocytes # (auto) 0.45 K/uL (0.11-0.59); Monocytes % (auto) 6.4 %; Neutrophils # (auto) 5.54 K/uL (1.40-6.50); Neutrophils % (auto) 79.4 %; Platelet Count 334 K/uL (130-400); RDW Coefficient of Variation 13.3 % (11.5-14.5); RDW Standard Deviation 49.8 fL (36.4-46.3); Red Blood Count 3.49 M/uL (4.20-5.40); White Blood Count 6.98 K/ul (4.8-10.8)
[2022-09-16] MEDS: ENOXAPARIN INJ 40 MG/0.4 ML SYR SQ SCH (08:43)
[2022-09-16] MEDS: PATIENT'S OWN ORAL CONTRACEPTIVE PO SCH (08:43)
[2022-09-16] MEDS: FEXOFENADINE HCL 180 MG TAB PO SCH (08:44)
[2022-09-16] MEDS: CHOLECALCIFEROL 1,000 UNITS 25 MCG TAB PO SCH (08:44)
--- NOTE | 2022-09-16 09:52 | Oral/Maxillofacial Consult ---
Date of Consultation September 16, 2022 Assessment & Plan (1) Submandibular gland swelling: History of Present Illness Attending Physician: Celestino Rosales MD History of Present Illness Good morning, I am out of town until TuesdaySeptember 20. I did review all the presenting information and personally reviewed the CT scan. I see no drainable pus looks to be a generalized right submandibular gland/space infection. No dental etiology noted No salivary stone Most likely a mucus plug causing a retrograde submandibular infection The treatment of choice is hydration and antibiotics. I would also suggest have Aline rinse and gargle with Peridex 2 x aday. I am available on phone [phone] or [place]. Usually with fluids and antibiotics are self resolving in a few days. I would be happy to see her once discharged. Thanks Mj Jerome \ Allergies Allergy/AdvReac Type Severity Reaction Status Date / Time latex Allergy Intermediate Rash Verified 09/14/22 21:20 Penicillins Allergy Intermediate Rash Verified 09/14/22 21:20 Home Medications Medication Instructions Recorded Confirmed Type cholecalciferol (vitamin D3) 25 25 mcg PO DAILY 09/14/22 09/14/22 History mcg (1,000 unit) capsule (Vitamin D3) fexofenadine 180 mg tablet 180 mg PO DAILY 09/14/22 09/14/22 History levonorgestrel 0.15 mg-ethinyl 1 tab PO QAM 09/14/22 09/14/22 History estradiol 0.03 mg tablet (Altavera (28)) levothyroxine 112 mcg tablet 112 mcg PO DAILYBB 09/14/22 09/14/22 History omega 7-avg-nkh-fish oil 1,000 mg 1 cap PO DAILY 09/14/22 09/14/22 History (120 mg-180 mg) capsule (Fish Oil) Patient History Social History Smoking Status: Never smoker Hx Alcohol Use: No Hx Substance Use: No Preferred Language: Lithuanian Communication Ability: Impaired Sustainability Coordinator Required: No Beliefs That Will Affect Care: None Current Living Situation: Parent Feels Safe at Home: Yes Assistive Devices: None Results & Data Vital Signs (Past 12 Hours) Vital Signs Temp Pulse Pulse Resp BP Pulse Ox O2 Del Method 09/16/22 08:43 36.3 C L 62 17 97/60 L 100 Room Air 09/16/22 03:11 36.9 C 50 L 18 97/59 L 97 Room Air 09/15/22 22:00 54 L 09/15/22 23:29 36.8 C 59 L 18 99/60 L 95 Room Air PG Care Time/CCT Total # of Minutes Spent Total Time Spent with Patient: Total time spent is greater than 50% in coordination of care (as documented) at patient's floor/unit and/or counseling patient: Coding Level of Care Code None Diagnoses Submandibular gland swelling R60.0
[2022-09-16] MEDS: cefTRIAXone SODIUM 2,000 MG in DEXTROSE 5% 50 ML IV SCH (10:54)
[2022-09-16 11:22] LABS: Calcium 8.6 mg/dl (8.6-10.3); Potassium 4.1 mmol/L (3.5-5.1)
[2022-09-16 11:28] LABS: BUN Creatinine Ratio 11.1 (10-20); Creatinine Clr Calc Pharmacy 64.6 ml/min; Est GFR (African American) 104.6 ml/min; Est GFR (Non-African American) 90.2 ml/min
[2022-09-16] MEDS: CHLORHEXIDINE GLUCONATE 0.12% 480 ML MT SCH ×2 (14:08→21:55)
--- NOTE | 2022-09-16 14:11 | Hospitalist Progress Note ---
Date of Service September 16, 2022 Assessment & Plan (1) Sepsis: (2) Cellulitis of face: Plan: patient is a 42-year-old female with history of Down syndrome and hypothyroidism. She presented with left facial redness, swelling and tenderness. Low-grade fever noted in ED. afebrile since Labs reviewed; leukocytosis improved. Face CT reviewed; mildly enhancing right submandibular gland and surrounding fatty stranding. Likely represents sialadenitis. MRSA nares negative Blood cultures no growth till date Oral surgery consulted; likely mucous plug cause retrograde submandibular infection. No surgical management needed. Recommended to rinse and gargle Peridex twice daily Will continue ceftriaxone On regular diet Monitor for signs of worsening which includes increased pain, swelling and fever. Chronic conditions: HypothyroidismTSH within normal limits. Continue levothyroxine OopoqrrlacyP2o of 5.5. Discussed with patient's parent at bedside. DVT prophylaxis Lovenox Full code Please note the above document was generated using voice recognition software. It may contain grammatical, syntax or spelling errors. Any formal questions or concerns about the content, text or information contained within the body of this dictation should be directly addressed to the provider for clarification Admission and Anticipated Discharge Date Admission Date: September 14, 2022 Subjective Patient seen and examined at bedside. Reports that swelling is slightly improved and redness has also decreased. Review of Systems Review of Systems: All systems reviewed & are unremarkable except as noted in Subjective Physical Exam Physical Exam: Constitutional: WD/WN, vitals as above, NAD, sitting up in bed, pleasant, conversing easily Head: Redness, swelling present on right cheek; improved compared to yesterday. Respiratory: normal respiratory effort, lungs clear to auscultation, no wheeze, rales, rhonchi. Normal insp/exp effort, no accessory muscle use Cardiovascular: RRR, no murmur, no edema Vessels: no JVD or carotid bruit Chest: normal inspection of chest Abdomen: normal bowel sounds, soft, nontender, no hepatosplenomegaly Musculoskeletal: no cyanosis or clubbing, extremities motor strength 5/5 Skin: no rashes, warm and dry normal turgor Neurologic: PERRL, EOMI, accommodation nl, no face palsy, no dysarthria CN's II- XI intact bilaterally and moves all extremities Psychiatric: A+Ox3, euthymic affect Results & Data Results & Data Vital Signs (Past 12 Hours) Vital Signs Temp Pulse Pulse Resp BP Pulse Ox O2 Del Method 09/16/22 08:00 78 09/16/22 08:43 36.3 C L 62 17 97/60 L 100 Room Air 09/16/22 03:11 36.9 C 50 L 18 97/59 L 97 Room Air Laboratory Results Laboratory Results WBC 6.98 K/ul (4.8-10.8) 09/16/22 06:25 RBC 3.49 M/uL (4.20-5.40) L 09/16/22 06:25 Hgb 12.1 g/dl (12.0-16.0) 09/16/22 06:25 Hct 35.3 % (37.0-47.0) L 09/16/22 06:25 MCV 101.1 fL (80.0-100.0) H 09/16/22 06:25 MCH 34.7 pg (25.0-34.0) H 09/16/22 06:25 MCHC 34.3 g/dL (32.0-36.0) 09/16/22 06:25 RDW Std Deviation 49.8 fL (36.4-46.3) H 09/16/22 06:25 RDW Coeff of Vishnu 13.3 % (11.5-14.5) 09/16/22 06:25 Plt Count 334 K/uL (130-400) 09/16/22 06:25 MPV 9.3 fL (9.4-12.4) L 09/16/22 06:25 Immature Gran % (Auto) 0.6 % 09/16/22 06:25 Neut % (Auto) 79.4 % 09/16/22 06:25 Lymph % (Auto) 12.8 % 09/16/22 06:25 [place] % (Auto) 6.4 % 09/16/22 06:25 Eos % (Auto) 0.1 % 09/16/22 06:25 Baso % (Auto) 0.7 % 09/16/22 06:25 Neut # (Auto) 5.54 K/uL (1.40-6.50) 09/16/22 06:25 Lymph # (Auto) 0.89 K/uL (1.2-3.4) L 09/16/22 06:25 [place] # (Auto) 0.45 K/uL (0.11-0.59) 09/16/22 06:25 Eos # (Auto) 0.01 K/uL (0-0.50) 09/16/22 06:25 Baso # (Auto) 0.05 K/uL (0-0.2) 09/16/22 06:25 Immature Gran # (Auto) 0.04 K/uL (0.01-0.20) 09/16/22 06:25 Sodium 140 mmol/L (136-145) 09/16/22 06:25 Potassium 4.1 mmol/L (3.5-5.1) 09/16/22 06:25 Chloride 108 mmol/L (98-107) H 09/16/22 06:25 Carbon Dioxide 25 mmol/L (21-32) 09/16/22 06:25 Anion Gap 7 (3-11) 09/16/22 06:25 BUN 9 mg/dl (6-23) 09/16/22 06:25 Creatinine 0.81 mg/dl (0.6-1.2) 09/16/22 06:25 Est Cr Clr Drug Dosing 64.6 ml/min 09/16/22 06:25 Est GFR ( Amer) 104.6 ml/min 09/16/22 06:25 Est GFR (Non-Af Amer) 90.2 ml/min 09/16/22 06:25 BUN/Creatinine Ratio 11.1 (10-20) 09/16/22 06:25 Glucose 95 mg/dl (70-99(Fasting)) 09/16/22 06:25 Estimat Average Glucose 111 mg/dl 09/14/22 19:50 Hemoglobin A1c 5.5 % (4.5-5.6) 09/14/22 19:50 Lactate 1.3 mmol/L (0.4-2.0) 09/14/22 23:06 Calcium 8.6 mg/dl (8.6-10.3) 09/16/22 06:25 Magnesium 1.9 mg/dl (1.7-2.4) 09/14/22 19:50 Total Bilirubin 0.4 mg/dl (0.2-1.0) 09/14/22 19:50 AST 24 U/L (13-39) 09/14/22 19:50 ALT 30 U/L (7-52) 09/14/22 19:50 Alkaline Phosphatase 102 U/L (34-104) 09/14/22 19:50 Total Protein 8.9 gm/dl (6.0-8.3) H 09/14/22 19:50 Albumin 4.0 gm/dl (3.4-5.0) 09/14/22 19:50 Globulin 4.9 gm/dl (2.5-4.0) H 09/14/22 19:50 Albumin/Globulin Ratio 0.8 (0.9-2) L 09/14/22 19:50 Nasal Screen MRSA (PCR) Negative (Negative) 09/15/22 15:05 SARS-CoV-2 (PCR) NEGATIVE (Negative) 09/14/22 20:33 Influenza Type A (PCR) Negative (Neg) 09/14/22 20:33 Influenza Type B (PCR) Negative (Neg) 09/14/22 20:33 RSV (RT-PCR) Negative (Neg) 09/14/22 20:[address] 09/14/22 23:30 Exam(s): CT FACIAL With Contrast IV Amt: 100 ML OPTIRAY 320 EXAM: CT Maxillofacial With Intravenous Contrast CLINICAL HISTORY: Reason for exam: swelling. PAIN AND SWELLING AT RIGHT SIDE OF FACE TECHNIQUE: Axial computed tomography images of the face with intravenous contrast. Automated exposure control was utilized for the study. A dose lowering technique was utilized adhering to the principles of ALARA. CONTRAST: Patient received 100 ML OPTIRAY 320 of IV contrast COMPARISON: No relevant prior studies available. FINDINGS: Bones/joints: No acute fracture. Soft tissues: Mild right lower facial soft tissue swelling. Lymph nodes: Multiple small and mildly enlarged adjacent nodes with surrounding fat stranding. Orbits: Unremarkable. Submandibular/parotid glands: Mildly enhancing right submandibular gland and surrounding fat stranding. No salivary ductal dilation or calculus visualized. Sinuses: Unremarkable. No air-fluid levels. IMPRESSION: Mildly enhancing right submandibular gland and surrounding fat stranding. Likely represents sialadenitis. Electronically signed by: Peace Chavarria M.D. 09/15/22 00:59 AM
[2022-09-16] MEDS: ACETAMINOPHEN 325 MG TAB PO PRN (16:19)
[2022-09-16] MEDS ORDERED: SODIUM CHLORIDE 0.65% NA SOLN 45 ML (OCEAN) PRN (22:02)
[2022-09-17] MEDS: LEVOTHYROXINE SODIUM 112 MCG TABLET PO SCH (05:52)
[2022-09-17] MEDS ORDERED: ADVANCED PROBIOTIC 1250 MG CAPSULE PO SCH (09:00)
[2022-09-17] MEDS: ENOXAPARIN INJ 40 MG/0.4 ML SYR SQ SCH (09:10)
[2022-09-17] MEDS: CHOLECALCIFEROL 1,000 UNITS 25 MCG TAB PO SCH (09:10)
[2022-09-17] MEDS: PATIENT'S OWN ORAL CONTRACEPTIVE PO SCH (09:11)
[2022-09-17] MEDS: FEXOFENADINE HCL 180 MG TAB PO SCH (09:11)
[2022-09-17] MEDS: CHLORHEXIDINE GLUCONATE 0.12% 480 ML MT SCH (09:11)
[2022-09-17] MEDS: cefTRIAXone SODIUM 2,000 MG in DEXTROSE 5% 50 ML IV SCH (09:15)
--- NOTE | 2022-09-17 15:45 | Discharge Summary ---
Date of Service September 17, 2022 Admission HPI Per Admitting Provider History obtained from patient, family, and records. Medical history significant for hypothyroidism, prediabetes, Down syndrome. Patient woke up this morning with some redness on her right face. Possible picking on the right nostril. No headache, no tooth ache, no fever, no chills. No chest pain, no SOB, no voice change or trouble swallowing. No prior episodes. Patient brought by family to ER. IV ceftriaxone administered at the ER. 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 Admission Exam Per Admitting Provider GENERAL: Comfortable, pleasant, no respiratory distress SKIN: Normal color, warm HEENT: [place] palpebral conjunctivae, no ptosis, right nasomaxillary erythematous swelling without fluctuance, dry buccal mucosa NECK : Supple, no tenderness CHEST : CTA, no tenderness HEART : RRR, no obvious murmurs ABDOMEN: Some distention, nontender EXTREMITIES : No LE swelling/tenderness, no other conspicuous deformities noted NEUROLOGIC : Coherent, no facial asymmetry, no other gross focality Principal Diagnosis Sialadenitis with secondary cellulitis Discharge Exam Constitutional WD/WN, vitals as above no acute distress Respiratory normal respiratory effort, lungs clear to auscultation Cardiovascular Rate/Rhythm: regular rate and regular rhythm Vessels: normal peripheral pulses Extremities: no edema Gastrointestinal (Abdomen) Percussion/Palpation: abdomen soft; abdomen nontender Skin Right cheek erythema and edema, improving; associated dry, peeling skin noted Neurologic no focal motor deficits Down syndrome Psychiatric A+Ox3, euthymic affect Discharge Data Allergies Allergy/AdvReac Type Severity Reaction Status Date / Time latex Allergy Intermediate Rash Verified 09/14/22 21:20 Penicillins Allergy Intermediate Rash Verified 09/14/22 21:20 Consultations 09/16/22 09:26 Consult Oromaxillofacial Surgery Routine Ordered Studies Laboratory Results WBC 6.98 K/ul (4.8-10.8) 09/16/22 06:25 RBC 3.49 M/uL (4.20-5.40) L 09/16/22 06:25 Hgb 12.1 g/dl (12.0-16.0) 09/16/22 06:25 Hct 35.3 % (37.0-47.0) L 09/16/22 06:25 MCV 101.1 fL (80.0-100.0) H 09/16/22 06:25 MCH 34.7 pg (25.0-34.0) H 09/16/22 06:25 MCHC 34.3 g/dL (32.0-36.0) 09/16/22 06:25 RDW Std Deviation 49.8 fL (36.4-46.3) H 09/16/22 06:25 RDW Coeff of Vishnu 13.3 % (11.5-14.5) 09/16/22 06:25 Plt Count 334 K/uL (130-400) 09/16/22 06:25 MPV 9.3 fL (9.4-12.4) L 09/16/22 06:25 Immature Gran % (Auto) 0.6 % 09/16/22 06:25 Neut % (Auto) 79.4 % 09/16/22 06:25 Lymph % (Auto) 12.8 % 09/16/22 06:25 [place] % (Auto) 6.4 % 09/16/22 06:25 Eos % (Auto) 0.1 % 09/16/22 06:25 Baso % (Auto) 0.7 % 09/16/22 06:25 Neut # (Auto) 5.54 K/uL (1.40-6.50) 09/16/22 06:25 Lymph # (Auto) 0.89 K/uL (1.2-3.4) L 09/16/22 06:25 [place] # (Auto) 0.45 K/uL (0.11-0.59) 09/16/22 06:25 Eos # (Auto) 0.01 K/uL (0-0.50) 09/16/22 06:25 Baso # (Auto) 0.05 K/uL (0-0.2) 09/16/22 06:25 Immature Gran # (Auto) 0.04 K/uL (0.01-0.20) 09/16/22 06:25 Sodium 140 mmol/L (136-145) 09/16/22 06:25 Potassium 4.1 mmol/L (3.5-5.1) 09/16/22 06:25 Chloride 108 mmol/L (98-107) H 09/16/22 06:25 Carbon Dioxide 25 mmol/L (21-32) 09/16/22 06:25 Anion Gap 7 (3-11) 09/16/22 06:25 BUN 9 mg/dl (6-23) 09/16/22 06:25 Creatinine 0.81 mg/dl (0.6-1.2) 09/16/22 06:25 Est Cr Clr Drug Dosing 64.6 ml/min 09/16/22 06:25 Est GFR ( Amer) 104.6 ml/min 09/16/22 06:25 Est GFR (Non-Af Amer) 90.2 ml/min 09/16/22 06:25 BUN/Creatinine Ratio 11.1 (10-20) 09/16/22 06:25 Glucose 95 mg/dl (70-99(Fasting)) 09/16/22 06:25 Estimat Average Glucose 111 mg/dl 09/14/22 19:50 Hemoglobin A1c 5.5 % (4.5-5.6) 09/14/22 19:50 Lactate 1.3 mmol/L (0.4-2.0) 09/14/22 23:06 Calcium 8.6 mg/dl (8.6-10.3) 09/16/22 06:25 Magnesium 1.9 mg/dl (1.7-2.4) 09/14/22 19:50 Total Bilirubin 0.4 mg/dl (0.2-1.0) 09/14/22 19:50 AST 24 U/L (13-39) 09/14/22 19:50 ALT 30 U/L (7-52) 09/14/22 19:50 Alkaline Phosphatase 102 U/L (34-104) 09/14/22 19:50 Total Protein 8.9 gm/dl (6.0-8.3) H 09/14/22 19:50 Albumin 4.0 gm/dl (3.4-5.0) 09/14/22 19:50 Globulin 4.9 gm/dl (2.5-4.0) H 09/14/22 19:50 Albumin/Globulin Ratio 0.8 (0.9-2) L 09/14/22 19:50 Nasal Screen MRSA (PCR) Negative (Negative) 09/15/22 15:05 SARS-CoV-2 (PCR) NEGATIVE (Negative) 09/14/22 20:33 Influenza Type A (PCR) Negative (Neg) 09/14/22 20:33 Influenza Type B (PCR) Negative (Neg) 09/14/22 20:33 RSV (RT-PCR) Negative (Neg) 09/14/22 20:[address] 09/14/22 23:30 Exam(s): CT FACIAL With Contrast IV Amt: 100 ML OPTIRAY 320 EXAM: CT Maxillofacial With Intravenous Contrast CLINICAL HISTORY: Reason for exam: swelling. PAIN AND SWELLING AT RIGHT SIDE OF FACE TECHNIQUE: Axial computed tomography images of the face with intravenous contrast. Automated exposure control was utilized for the study. A dose lowering technique was utilized adhering to the principles of ALARA. CONTRAST: Patient received 100 ML OPTIRAY 320 of IV contrast COMPARISON: No relevant prior studies available. FINDINGS: Bones/joints: No acute fracture. Soft tissues: Mild right lower facial soft tissue swelling. Lymph nodes: Multiple small and mildly enlarged adjacent nodes with surrounding fat stranding. Orbits: Unremarkable. Submandibular/parotid glands: Mildly enhancing right submandibular gland and surrounding fat stranding. No salivary ductal dilation or calculus visualized. Sinuses: Unremarkable. No air-fluid levels. IMPRESSION: Mildly enhancing right submandibular gland and surrounding fat stranding. Likely represents sialadenitis. Electronically signed by: Peace Chavarria M.D. 09/15/22 00:59 AM Hospital Course (1) Sepsis: (2) Sialadenitis: (3) Cellulitis of face: Patient is a 42-year-old female with history of Down syndrome and hypothyroidism. She presented with left facial redness, swelling and tenderness. Met sepsis criteria on admission with leukocytosis and tachycardia, low-grade fever noted in ED. Afebrile since. Leukocytosis improved Face CT - mildly enhancing right submandibular gland and surrounding fatty s tranding. Likely represents sialadenitis. MRSA nares negative Blood cultures no growth till date Oral surgery consulted; likely mucous plug cause retrograde submandibular infection. No surgical management needed. Received IV ceftriaxone --> IV cefepime --> IV doxycycline --> IV ceftriaxone. Will discharge on Keflex for additional 5 days. Recommend patient take a probiotic. Recommended to rinse with Peridex twice daily Follow-up with oral surgery as needed or if not improving. Chronic conditions: Hypothyroidism TSH within normal limits. Continue levothyroxine Prediabetes A1c of 5.5 Total Time Total Time Spent Total Time Spent (In Minutes): 35 Discharge Plan Discharge Items Patient Disposition: Home - Self-Care Reason For Visit: Right facial swelling and redness Discharge Diagnosis: Sialadenitis (inflammation of salivary gland due to obstruction) Secondary Cellulitis (skin infection) Activity: Resume your previous activity Non-emergency contact: Primary Care Provider Call non-emergency contact if: you have any medication questions, your symptoms worsen, your pain is not controlled and you have a fever Follow-up/Referrals: Eloina Boss DO [Primary Care Provider] - 09/20/22 4:20 pm (Date & Time 09/20/2022 4:20 PM Provider Eloina Boss DO Department [facility] ) Mj Jerome, ADALBERTO [Physician] - (follow up if needed or if not improving) Diet: Regular and Lactose Intolerant Addtl Attending Provider Instructions: You came to the hospital for evaluation of right facial swelling and redness. You were found to have sialadenitis (inflammation of salivary gland due to obstruction by a mucous plug) which caused a secondary cellulitis over the right cheek. You were treated with IV antibiotics while in the hospital, you will be discharged on Keflex 500 mg every 6 hours for the next 5 days. Continue to take probiotic for the next 7 days. If GI symptoms persist, probiotic can be continued additionally. Use Peridex mouthwash -swish and spit twice daily. For dry and peeling skin over right cheek, you may use a facial moisturizer such as Cetaphil, Aquaphor, Ponds cream. You may follow-up with Dr. Mj Jerome (oral surgeon) as needed or if not improving. Follow-up appointment has been made for you with your PCP. It was a pleasure taking care of you. If you need to reach a member of the [facility] hospitalist team at [facility], please call [phone]. PONCHO Ortega Pending Studies at Discharge: No Stand-Alone Forms: My [facility], Work/School Release, Smoking Cessa tion Medications and DC Order Prescriptions: New chlorhexidine gluconate 0.12 % Mouthwash 15 ml MT BID Qty: 473 0RF Advanced Probiotic 625 mg (10 billion cell) Capsule 2 cap PO DAILY Qty: 20 0RF cephalexin 500 mg capsule 500 mg PO Q6H 5 Days Qty: 20 0RF Continued levonorgestrel-ethinyl estrad [Altavera (28)] 0.15-0.03 mg tablet 1 tab PO QAM fexofenadine 180 mg Tablet 180 mg PO DAILY levothyroxine 112 mcg tablet 112 mcg PO DAILYBB cholecalciferol (vitamin D3) [Vitamin D3] 25 mcg (1,000 unit) Capsule 25 mcg PO DAILY omega 3-znb-lak-fish oil [Fish Oil] 1,000 mg (120 mg-180 mg) Capsule 1 cap PO DAILY Discharge Orders: Discharge Order (Routine); Ordered 09/17/22 Ordered By: Marie Georges/Other Patient Handouts: Cellulitis Dc Admission Data Admit Date/Time: 09/14/22 23:34 Attending Provider: Celestino Rosales Admit Provider: Cesar Cool Primary Care Provider: Eloina Boss Other Providers: Cesar Cool ; Mj Jerome Other Interventions: Discharge Summary Assessment (RN) Last Done: 09/17/22 10:56 Supervising Physician Co-Signing Physician Notes Patient seen and examined at bedside. Improvement noted in right cheek cellulitis. Patient to be discharged home on Keflex for 5 more days Follow-up with primary care doctor. Discussed with patient's mom at bedside.
== END 2022-09-17 12:28 | disposition home or self-care (01) | DRG 872 ==
LOC: ED 19:37 → 2N 23:34 → 3N 09-16 23:47